=== PATIENT | male | born 1960 | race Caucasian/White ===

== ENCOUNTER → 2017-06-13 | Outpatient (CLI) | payer OTHER ==
[2016-06-10 11:50] VITALS: BP 147/88
[~2017-06-13] MED LIST: DILT180C29 PO; DILT300C2 PO; HYDR50TA6 PO; LISI40TA PO; MECL25TA3 PO
--- NOTE | 2017-06-13 09:29 | RAD ---
MRI Brain without contrast History: Unsteady gait, fatigue, possible multiple sclerosis Technique: Multiplanar, multisequential noncontrast MR imaging was performed of the brain. Contrast: None Comparison: None Findings: There is no evidence of recent infarct or cytotoxic edema. The ventricles, sulci, and cisterns are within normal limits in size and configuration. There is no significant midline shift, intraaxial mass effect, or focal abnormal extra-axial fluid collection. There is very minimal T2 and FLAIR hyperintense signal of the supratentorial periventricular white matter, degree of which can be seen in asymptomatic individuals. No discrete lesion is identified with a perpendicular orientation relative to the lateral ventricles. Small focus of increased FLAIR signal of the left paracentral medulla on axial images is not confirmed on other images and believed to be artifactual. There is preservation of the major intracranial flow-voids at the skull base. The mastoid air cells are aerated. The cerebellar tonsils are normal in location. There is no significant abnormality of the pineal gland or pituitary gland. There is patchy [id number] ethmoid air cell mucosal thickening, minimally of the maxillary sinuses greater on the right. There are also some mucus retention cysts of the maxillary sinuses, what, likely represents somewhat complex mucous retention cyst of the anterior right maxillary sinus 0.8 cm. There is also very mild frontal sinus mucosal thickening. There is nonspecific increased CSF signal of the optic optic nerve sheaths bilaterally. There is preserved marrow signal of the clivus. Impression: 1. There is no significant intracranial abnormality, very minimal T2 and FLAIR hyperintense signal of the supratentorial periventricular white matter which can be seen in asymptomatic individuals. No discrete lesion is identified to confidently suggest an inflammatory demyelinating disease. 2. There is paranasal sinus mucosal thickening as stated. Electronically signed by: Garcia Scruggs MD (06/13/2017 9:26 AM) [id number]
== END | disposition home or self-care (01) ==
LOC: MRI 08:30
PROVIDERS: ATTEND Nurse Practitioner Acute Care
DX: G35 Multiple sclerosis (principal); R26.81 Unsteadiness on feet
CPT/HCPCS: 70551

== ENCOUNTER 2018-07-01 11:40 | Emergency (ER) | payer BC, OTHER ==
[~2018-07-01] VITALS: Ht 180.3 cm; Wt 95.3 kg
[~2018-07-01 11:40] MED LIST changes: +LISI-130 PO; -LISI40TA PO
[2018-07-01] MEDS ORDERED: IV NORMAL SALINE 1000ML BAG 1,000 ML IV SCH (12:24)
[2018-07-01] MEDS ORDERED: fentaNYL PF VIAL 100 MCG/2 ML VIAL IV PRN (12:30)
[2018-07-01] MEDS ORDERED: ONDANSETRON PF 4 MG/2 ML VIAL. IV ONE (12:30)
[2018-07-01 12:39] LABS: BASO # 0.1 x10^3/uL (0.0-0.2); BASO % 1 % (0-3); EOS # 0.2 x10^3/uL (0.0-0.7); EOS % 2 % (0-3); HEMATOCRIT 45.4 % (39.0-53.0); HEMOGLOBIN 16.4 g/dL (13.0-17.5); LYMPH # 3.6 x10^3/uL (1.0-4.8); LYMPH % 33 % (24-48); MEAN CORPUSCULAR HEMOGLOBIN 34 pg (25-35); MEAN CORPUSCULAR HGB CONC 36 g/dL (31-37); MEAN CORPUSCULAR VOLUME 95 fL (79-100); MONO # 1.4 x10^3/uL (0.0-1.1); MONO % 13 % (0-9); NEUT # 5.5 x10^3uL (1.8-7.7); NEUT % 51 % (31-73); PLATELET COUNT 206 x10^3/uL (140-400); RED BLOOD COUNT 4.78 x10^6/uL (4.30-5.70); WHITE BLOOD COUNT 10.8 x10^3/uL (4.0-11.0)
[2018-07-01 12:41] LABS: BILIRUBIN,URINE NEGATIVE (NEG); CLARITY,URINE CLEAR; NITRITE,URINE NEGATIVE (NEG); PH,URINE 6.5; PROTEIN,URINE NEGATIVE (NEG-TRACE); UROBILINOGEN,URINE 0.2 mg/dL (0.2 mg/dL)
[2018-07-01 12:49] LABS: CALCIUM 9.6 mg/dL (8.5-10.1); CREATININE 1.2 mg/dL (0.7-1.3); GFR 61.8; POTASSIUM 3.6 mmol/L (3.5-5.1)
[2018-07-01 13:04] LABS: BACTERIA,URINE FEW /HPF (0-FEW); COLOR,URINE STRAW; RBC,URINE RARE /HPF (0-2); SQUAMOUS EPITHELIAL CELL,UR OCC /LPF; WBC,URINE RARE /HPF (0-4)
[2018-07-01 13:04] LABS: ALBUMIN/GLOBULIN RATIO 0.9 (1.0-1.7); TOTAL BILIRUBIN 0.3 mg/dL (0.2-1.0); TOTAL PROTEIN 8.4 g/dL (6.4-8.2)
--- NOTE | 2018-07-01 13:15 | RAD ---
EXAM: Chest, single view. HISTORY: Epigastric pain. COMPARISON: CT dated 01/25/2014. FINDINGS: A frontal view of the chest is obtained. There is no infiltrate, pleural effusion or pneumothorax. The heart is normal in size for portable technique. IMPRESSION: No acute pulmonary finding. Electronically signed by: Viky Burns MD (07/01/2018 1:11 PM) [place] [id number]
[2018-07-01 13:46] VITALS: BP 145/86
[2018-07-01] MEDS ORDERED: IOHEXOL 300 MG/ML 100ML VIAL. IV ONE (14:00)
[2018-07-01] MEDS ORDERED: LIDO:MAALOX 1:1 20 ML SINGLE DOSE. SWSW ONE (14:00)
[2018-07-01] MEDS ORDERED: CONTRAST GIVEN. MC PRN (14:00)
--- NOTE | 2018-07-01 14:24 | RAD ---
EXAM: Abdomen and pelvis CT with intravenous contrast. HISTORY: Pain. TECHNIQUE: Computed tomographic images of the abdomen and pelvis were obtained following the administration of 75 cc Omnipaque 300 intravenous contrast. Multiplanar reformatting was performed. *One or more of the following individualized dose reduction techniques were utilized for this examination: 1. Automated exposure control. 2. Adjustment of the mA and/or kV according to patient size. 3. Use of iterative reconstruction technique. COMPARISON: 01/25/2014. FINDINGS: Evaluation of the lower thorax demonstrates posterior dependent and basilar atelectasis. There is a 2 mm benign nodular opacity within the lateral right middle lobe. There is a small cyst within the right lower lobe. There is hepatic steatosis. There is a 4.2 cm hyperdense lesion within the left hepatic lobe. Focal fatty sparing along the gallbladder fossa. There are prominent lymph nodes within the tierra hepatis, likely reactive in etiology. The pancreas, spleen and kidneys are unremarkable. There is a stable nodular thickening of the adrenal glands, without a discrete mass. No abnormally thickened or dilated loop of bowel is seen. The bladder is decompressed. There are prostate calcifications. There is aortobiiliac atherosclerosis. There is no suspicious osseous lesion. IMPRESSION: Hepatic steatosis. There is a 4.2 cm hyperdense lesion within the left hepatic lobe which may be due to geographic fatty sparing or an enhancing lesion. This can be assessed with a liver sonogram. There is also suspected fatty sparing along the collar fossa. Electronically signed by: Viky Burns MD (07/01/2018 2:19 PM) [facility]
--- NOTE | 2018-07-01 15:16 | PHYS DOC ---
Past Medical History Past Medical History: High Cholesterol, Hypertension, Other Additional Past Medical Histor: Shanks palsy, Guillian Killen Syndrome Past Surgical History: Appendectomy Alcohol Use: None Drug Use: None Adult General Chief Complaint Chief Complaint: CHEST PAIN HPI HPI Patient is a 58-year-old male who presents with complaint of epigastric abdominal pain that started last night. Patient denies any actual chest pain but does state that he has had some intermittent burning in his lower chest. He rates pain as being moderate and states the pain is not alleviated by anything. He describes pain as being a deep burning type pain. He denies any nausea, vomiting or diaphoresis. Review of Systems Review of Systems Constitutional: Denies fever or chills [] Respiratory: Denies cough or shortness of breath [] Cardiovascular: No additional information not addressed in HPI [] GI: Complains of epigastric abdominal pain without vomiting or diarrhea [] Musculoskeletal: Denies back pain or joint pain [] Neurologic: Denies headache, focal weakness or sensory changes [] All other systems were reviewed and found to be within normal limits, except as documented in this note. Current Medications Current Medications Current Medications Medications (Trade) Dose Ordered Sig/Christin Start Time Stop Time Status Last Admin Dose Admin Fentanyl Citrate (Fentanyl 2ml Vial) 25 mcg PRN Q15MIN PRN 07/01/18 12:30 07/01/18 16:10 DC 07/01/18 13:03 25 MCG Info (CONTRAST GIVEN -- Rx MONITORING) 1 each PRN DAILY PRN 07/01/18 14:00 07/01/18 16:10 DC Iohexol (Omnipaque 300 Mg/ml) 75 ml 1X ONCE 07/01/18 14:00 07/01/18 14:01 DC 07/01/18 14:14 75 ML Multi-Ingredient Mouthwash/Gargle (Gi Cocktail) 20 ml 1X ONCE 07/01/18 14:00 07/01/18 14:01 DC 07/01/18 14:23 20 ML Ondansetron HCl (Zofran) 4 mg 1X ONCE 07/01/18 12:30 07/01/18 12:31 DC 07/01/18 13:04 4 MG Sodium Chloride 1,000 ml @ 1,000 mls/hr Q1H 07/01/18 12:24 07/01/18 13:23 DC 07/01/18 13:04 1,000 MLS/HR Allergies Allergies Allergies Coded Allergies Type Severity Reaction Last Updated Verified Ziqqbdx-Rvr-Nwa Reductase Inhibitor Allergy Intermediate 01/24/14 Yes Physical Exam Physical Exam Constitutional: Well developed, well nourished, no acute distress, non-toxic appearance. [] HENT: Normocephalic, atraumatic, bilateral external ears normal, oropharynx moist, no oral exudates, nose normal. [] Eyes: PERRLA, EOMI, conjunctiva normal, no discharge. [] Neck: Normal range of motion, no tenderness, supple, no stridor. [] Cardiovascular: Regular rate and rhythmscultation [] Abdomen: Bowel sounds normal, soft, with epigastric tenderness. [] Skin: Warm, dry, no erythema, no rash. [] Extremities: No tenderness, no cyanosis, no clubbing, ROM intact, no edema. [] Current Patient Data Vital Signs Vital Signs Date Time Temp Pulse Resp B/P (MAP) Pulse Ox O2 Delivery O2 Flow Rate FiO2 07/01/18 13:46 56 145/86 (105) 93 Room Air 07/01/18 13:03 16 07/01/18 12:06 98.6 98.6 Lab Values Laboratory Tests Test 07/01/18 11:53 07/01/18 12:23 White Blood Count 10.8 x10^3/uL (4.0-11.0) Red Blood Count 4.78 x10^6/uL (4.30-5.70) Hemoglobin 16.4 g/dL (13.0-17.5) Hematocrit 45.4 % (39.0-53.0) Mean Corpuscular Volume 95 fL (79-100) Mean Corpuscular Hemoglobin 34 pg (25-35) Mean Corpuscular Hemoglobin Concent 36 g/dL (31-37) Red Cell Distribution Width 14.0 % (11.5-14.5) Platelet Count 206 x10^3/uL (140-400) Neutrophils (%) (Auto) 51 % (31-73) Lymphocytes (%) (Auto) 33 % (24-48) Monocytes (%) (Auto) 13 % (0-9) H Eosinophils (%) (Auto) 2 % (0-3) Basophils (%) (Auto) 1 % (0-3) Neutrophils # (Auto) 5.5 x10^3uL (1.8-7.7) Lymphocytes # (Auto) 3.6 x10^3/uL (1.0-4.8) Monocytes # (Auto) 1.4 x10^3/uL (0.0-1.1) H Eosinophils # (Auto) 0.2 x10^3/uL (0.0-0.7) Basophils # (Auto) 0.1 x10^3/uL (0.0-0.2) Platelet Estimate Adequate (ADEQUATE) Platelet Clumps, EDTA Present Large Platelets Occ Sodium Level 138 mmol/L (136-145) Potassium Level 3.6 mmol/L (3.5-5.1) Chloride Level 98 mmol/L (98-107) Carbon Dioxide Level 29 mmol/L (21-32) Anion Gap 11 (6-14) Blood Urea Nitrogen 18 mg/dL (8-26) Creatinine 1.2 mg/dL (0.7-1.3) Estimated GFR (Cockcroft-Gault) 61.8 BUN/Creatinine Ratio 15 (6-20) Glucose Level 82 mg/dL (70-99) Calcium Level 9.6 mg/dL (8.5-10.1) Total Bilirubin 0.3 mg/dL (0.2-1.0) Aspartate Amino Transferase (AST) 19 U/L (15-37) Alanine Aminotransferase (ALT) 40 U/L (16-63) Alkaline Phosphatase 108 U/L (46-116) Troponin I Quantitative < 0.017 ng/mL (0.000-0.055) Total Protein 8.4 g/dL (6.4-8.2) H Albumin 4.0 g/dL (3.4-5.0) Albumin/Globulin Ratio 0.9 (1.0-1.7) L Lipase 117 U/L (73-393) Urine Collection Type Unknown Urine Color Straw Urine Clarity Clear Urine pH 6.5 Urine Specific [place] <=1.005 Urine Protein Negative mg/dL (NEG-TRACE) Urine Glucose (UA) Negative mg/dL (NEG) Urine Ketones (Stick) Negative mg/dL (NEG) Urine Blood Negative (NEG) Urine Nitrite Negative (NEG) Urine Bilirubin Negative (NEG) Urine Urobilinogen Dipstick 0.2 mg/dL (0.2 mg/dL) Urine Leukocyte Esterase Negative (NEG) Urine RBC Rare /HPF (0-2) Urine WBC Rare /HPF (0-4) Urine Squamous Epithelial Cells Occ /LPF Urine Bacteria Few /HPF (0-FEW) Laboratory Tests 07/01/18 11:53 Laboratory Tests 07/01/18 11:53 EKG EKG [] Interpretation Time: EKG demonstrates normal sinus rhythm with rate of 79. There are PVCs noted. Radiology/Procedures Radiology/Procedures [] Impressions: PROCEDURE: CT ABD PELV W/ IV CONTRST ONLY EXAM: Abdomen and pelvis CT with intravenous contrast. HISTORY: Pain. TECHNIQUE: Computed tomographic images of the abdomen and pelvis were obtained following the administration of 75 cc Omnipaque 300 intravenous contrast. Multiplanar reformatting was performed. *One or more of the following individualized dose reduction techniques were utilized for this examination: 1. Automated exposure control. 2. Adjustment of the mA and/or kV according to patient size. 3. Use of iterative reconstruction technique. COMPARISON: 01/25/2014. FINDINGS: Evaluation of the lower thorax demonstrates posterior dependent and basilar atelectasis. There is a 2 mm benign nodular opacity within the lateral right middle lobe. There is a small cyst within the right lower lobe. There is hepatic steatosis. There is a 4.2 cm hyperdense lesion within the left hepatic lobe. Focal fatty sparing along the gallbladder fossa. There are prominent lymph nodes within the tierra hepatis, likely reactive in etiology. The pancreas, spleen and kidneys are unremarkable. There is a stable nodular thickening of the adrenal glands, without a discrete mass. No abnormally thickened or dilated loop of bowel is seen. The bladder is decompressed. There are prostate calcifications. There is aortobiiliac atherosclerosis. There is no suspicious osseous lesion. IMPRESSION: Hepatic steatosis. There is a 4.2 cm hyperdense lesion within the left hepatic lobe which may be due to geographic fatty sparing or an enhancing lesion. This can be assessed with a liver sonogram. There is also suspected fatty sparing along the collar fossa. Electronically signed by: Viky Burns MD (07/01/2018 2:19 PM) [facility] Course & Med Decision Making Course & Med Decision Making Pertinent Labs and Imaging studies reviewed. (See chart for details) [] Dragon Disclaimer Dragon Disclaimer This electronic medical record was generated, in whole or in part, using a voice recognition dictation system. Departure Departure Impression: Primary Impression: Epigastric abdominal pain Disposition: 01 HOME, SELF-CARE Condition: STABLE Referrals: NO PCP (PCP) Patient Instructions: Abdominal Pain, Gastritis, Adult Scripts Hydrocodone/Apap 5-325 (NORCO 5-325 TABLET) 1 Each Tablet 1-2 EACH PO PRN Q6HRS PRN for PAIN, #15 as needed for pain Prov: LUIS MANUEL VIEYRA Jr. DO 07/01/18 Ondansetron Hcl (ZOFRAN) 4 Mg Tablet 4 MG PO PRN TID PRN for NAUSEA, #15 nausea/vomiting Prov: LUIS MANUEL VIEYRA Jr. DO 07/01/18 Omeprazole (OMEPRAZOLE) 40 Mg Capsule.dr 1 CAP PO DAILY, #30 CAP Prov: LUIS MANUEL VIEYRA Jr. DO 07/01/18 LUIS MANUEL VIEYRA Jr. DO Jul 01, 2018 15:16
[2018-07-01] MEDS ORDERED: ONDA4TAB7 PO (15:47)
[2018-07-01] MEDS ORDERED: HYDR-3164 PO (15:47)
[2018-07-01] MEDS ORDERED: OMEP40CA5 PO (15:47)
[2018-07-01 15:59] LABS: PLATELET CLUMP PRESENT; PLT ESTIMATE ADEQUATE (ADEQUATE)
--- NOTE | 2018-07-01 16:20 | EKG ---
[facility] [address] [place] [address] Test Date: 2018-07-01 Test Time: 11:43:08 Pat Name: MIKE MONTOYA Department: Room: Gender: M Substance Addiction Coordinator: [place] : 1960 Requested By: LUIS MANUEL VIEYRA Order Number: [id number] Reading MD: Martinez Bautista Measurements Intervals [place] Rate: 79 P: 58 DC: 148 QRS: 45 QRSD: 104 T: 59 QT: 368 QTc: 423 Interpretive Statements SINUS RHYTHM VENTRICULAR PREMATURE COMPLEX(ES) Electronically Signed On 07-07-2018 9:23:33 EMBEDDED SOFTWARE MANAGER by Martinez Bautista
== END 2018-07-01 16:10 | disposition home or self-care (01) ==
LOC: ER 11:40
DX: R10.13 Epigastric pain (principal); K76.0 Fatty (change of) liver, not elsewhere classified; E78.00 Pure hypercholesterolemia, unspecified; I10 Essential (primary) hypertension; Z90.89 Acquired absence of other organs; Z88.8 Allergy status to other drugs, medicaments and biological substances
CPT/HCPCS: 36415; 71045; 74177; 80053; 81001; 83690; 84484; 85025; 93005; 96374; 96375; 99284; J2405; J3010; J7030; Q9967